=== PATIENT | female | born 1995 | race Caucasian/White ===

== ENCOUNTER 2018-10-10 23:37 | Emergency (ER) | payer BC ==
[~2018-10-10] VITALS: Ht 175.3 cm; Wt 145.5 kg
[~2018-10-10 23:37] MED LIST: ABILIFY20 MG PO
[2018-10-11] MEDS ORDERED: ZOLOFT 100MG100 MG PO
[2018-10-11] MEDS ORDERED: ADVIL200 MG PO (00:01)
[2018-10-11] MEDS ORDERED: LANTUS100 U/ML SQ (00:01)
[2018-10-11] MEDS ORDERED: FORT1000TA (00:02)
[2018-10-11] MEDS ORDERED: PRINZIDE 12.5 M1 TA1 PO (00:03)
[2018-10-11] MEDS ORDERED: PRENATAL MVI (00:03)
[2018-10-11] MEDS ORDERED: MASON NATURAL2000 IU (00:04)
[2018-10-11] MEDS ORDERED: THE MEDICINE S200 M2 PO (00:04)
[2018-10-11 00:05] LABS: BASO # 0.1 (0.0-0.2); BASO % 0.6 % (0.0-2.0); EOS # 0.1 (0.0-0.7); EOS % 1.2 % (0-4.0); GRAN # 6.8 (1.4-6.5); GRAN % 62.6 % (42.2-75.2); HEMATOCRIT 43.6 % (37.0-47.0); HEMOGLOBIN 14.5 g/dl (12.5-16.0); LYMPH # 3.3 (1.2-3.4); LYMPH % 29.8 % (20.0-51.0); MEAN CELL VOLUME 91 fl (80.0-100.0); MEAN CORPUSCULAR HEMOGLOBIN 30 pg (27.0-31.0); MEAN CORPUSCULAR HGB CONC 33 g/dl (33.0-37.0); MEAN PLATELET VOLUME 9.9 fl (7.4-10.4); MONO # 0.6 (0.1-0.6); MONO % 5.1 % (1.7-9.3); PLATELET COUNT 307 K/mm3 (130-400); REDCELL DISTRIBUTION WIDTH-CV 12.3 % (11.5-14.5)
[2018-10-11] MEDS ORDERED: FISH OIL 500 M1 EAC1 PO (00:05)
[2018-10-11 00:12] LABS: ALANINE AMINOTRANSFERASE 41 U/L (9-52); ALBUMIN 4.4 gm/dL (3.5-5.0); ALCOHOL(ethanol),MEDICAL 55 mg/dL; ALKALINE PHOSPHATASE 75 U/L (50-136); ANION GAP 14 mmol/L (7-16); AST,SGOT 25 U/L (15-37); BILIRUBIN,TOTAL 0.2 mg/dL (0.0-1.0); BLOOD UREA NITROGEN 12 mg/dL (7-17); CALCIUM 8.9 mg/dL (8.4-10.2); CARBON DIOXIDE 22 mmol/L (22-30); CHLORIDE 97 mmol/L (98-107); CREATININE, serum 0.83 mg/dL (0.52-1.25); LIPASE 249 U/L (23-300); POTASSIUM 3.8 mmol/L (3.4-5.0); SODIUM 133 mmol/L (137-145); TOTAL PROTEIN 7.3 gm/dL (6.4-8.2)
[2018-10-11 00:20] LABS: COLLECTION METHOD CLEAN CATCH
[2018-10-11 00:26] LABS: MUCOUS Present /lpf; PH 5 (5-8); SQUAMOUS EPITHELIAL 0-2 /hpf; URINE APPEARANCE Clear; URINE BACTERIA None Seen /hpf; URINE BILIRUBIN Negative (NEGATIVE); URINE BLOOD Negative (NEGATIVE); URINE COLOR Straw; URINE GLUCOSE 3+ (NEGATIVE); URINE KETONE Negative (NEGATIVE); URINE LEUKOCYTE ESTERASE Negative (NEGATIVE); URINE NITRATE Negative (NEGATIVE); URINE PROTEIN(semi-quant) Negative (NEGATIVE); URINE RBC 0-2 /hpf; URINE UROBILINOGEN Negative (NEGATIVE)
[2018-10-11 00:26] LABS: ACETONE,SERUM NEGATIVE
[2018-10-11 00:33] LABS: GLUCOSE 610 mg/dL (74-106)
[2018-10-11 02:30] VITALS: TEMP 98.2
[2018-10-11 06:00] VITALS: BP 143/99; PULSE 110
== END 2018-10-11 06:04 | disposition home or self-care (01) ==
LOC: COL.ER 23:37
PROVIDERS: Emergency Medicine
DX: E11.65 Type 2 diabetes mellitus with hyperglycemia (principal); Z79.4 Long term (current) use of insulin
CPT/HCPCS: J1815; J7030